=== PATIENT | female | born 1965 | race Caucasian/White ===

== ENCOUNTER 2018-02-11 12:21 | Emergency (ER) | payer BC, OTHER ==
[~2018-02-11] VITALS: Ht 157.5 cm; Wt 68.0 kg
--- NOTE | 2018-02-11 12:28 | NUR ---
CALLED TO TRIAGE, IN RESTROOM
--- NOTE | 2018-02-11 12:40 | NUR ---
PRESENTS TO ER C/O WORSENING BACK PAIN X 1 WEEK. A/OX 4, BREATHING EVEN AND UNLABORED. NO SOB, NAD, VITALS STABLE. SAFETY AND COMFORT MEASURES IN PLACE. AWAITING MD ORDERS.
[2018-02-11] MEDS ORDERED: CYCLOBENZAPRINE 10 MG TABLET ONE (12:51)
[2018-02-11] MEDS ORDERED: KETOROLAC TROMETHAMINE INJ 30 MG/ML VIAL ONE (12:51)
[2018-02-11] MEDS ORDERED: KETOROLAC TROMETHAMINE INJ 60 MG/2 ML VIAL IM ONE (13:00)
[2018-02-11] MEDS ORDERED: CYCLOBENZAPRINE 10 MG TABLET PO ONE (13:00)
[2018-02-11 13:03] VITALS: BP 124/76
--- NOTE | 2018-02-11 13:05 | NUR ---
Patient discharged to home in stable condition. Written and verbal after care instructions given. Patient verbalizes understanding of instruction.
== END 2018-02-11 13:04 | disposition home or self-care (01) ==
LOC: ER 12:25
DX: M54.5 Low back pain (principal); M41.9 Scoliosis, unspecified
CPT/HCPCS: 96372; 99283; A4606; J1885; Z7610

== ENCOUNTER 2018-02-13 14:53 | Emergency (ER) | payer OTHER ==
[~2018-02-13] VITALS: Ht 157.5 cm; Wt 68.0 kg
--- NOTE | 2018-02-13 15:11 | NUR ---
PATIENT TO ED DT LOWER BACK PAIN, 8/10, NON RADIATING. PER PATIENT'S HER PMD IS REQUESTING MRI DONE IN ED.PATIENT IS NOT ON DISTRESS. SKIN IS WARM TO TOUCH AND NON DIAPHORETIC. PATIENT IS AFEBRILE.VSS
[2018-02-13 15:22] VITALS: BP 130/80
--- NOTE | 2018-02-13 15:23 | NUR ---
Patient discharged to home in stable condition. Written and verbal after care instructions given. Patient verbalizes understanding of instruction.
== END 2018-02-13 15:24 | disposition home or self-care (01) ==
LOC: ER 14:56
DX: M54.16 Radiculopathy, lumbar region (principal); M41.9 Scoliosis, unspecified
CPT/HCPCS: 99283; A4606; Z7610